=== PATIENT | male | born 2000 | race Two or more races ===

== ENCOUNTER 2022-09-24 22:58 | Emergency (ER) | payer MEDICAID ==
[~2022-09-24] VITALS: Ht 180.3 cm; Wt 82.4 kg
[2022-09-25 02:25] LABS: Urine Bacteria NONE SEEN /hpf (None Seen); Urine Blood Negative /uL (Negative); Urine Specific Gravity 1.006 (1.001-1.035); Urine WBC 3 /hpf (0 - 3)
[2022-09-25] MEDS ORDERED: KETOROLAC TROMETH 60MG/2ML VIAL IM ONE (03:15)
[2022-09-25 03:23] VITALS: BP 127/85
== END 2022-09-25 03:31 | disposition home or self-care (01) ==
LOC: ER 23:15
DX: M54.50 Low back pain, unspecified (principal)
CPT/HCPCS: 81001; 96372; 99283; J1885